=== PATIENT | female | born 1990 | race African-American/Black ===

== ENCOUNTER 2025-01-28 01:07 | Emergency (ER) | payer MEDICAID, OTHER ==
[~2025-01-28] VITALS: Ht 170.2 cm; Wt 107.0 kg
[2025-01-28 01:18] VITALS: O2SAT 99
[2025-01-28 01:58] LABS: BASOPHILS % 0.3 % (0.0-2.0); EOSINOPHILS % 2.2 % (0.0-5.0); HEMATOCRIT. 38.5 % (36.0-48.0); HEMOGLOBIN. 13.3 g/dL (12.0-16.0); LYMPHOCYTES % 33.6 % (20.0-50.0); MEAN PLATELET VOLUME 7.2 fl (7.4-10.4); MONOCYTES % 5.1 % (2.0-8.0); NEUTROPHILS % 58.8 % (40.0-76.0); PLATELET 401 x1000/uL (130-400); RED BLOOD CELL COUNT 4.85 mill/uL (4.2-5.4); RED CELL DISTRIBUTION WIDTH 14.3 % (11.6-14.6)
[2025-01-28 02:07] LABS: CREATININE 0.7 mg/dL (0.6-1.0); UREA NITROGEN BLOOD < 5 mg/dL (9-23)
[2025-01-28 02:09] LABS: TROPONIN I HIGH SENSITIVITY < 4 ng/L (3.0-34)
[2025-01-28] MEDS ORDERED: DICL100G58 TP (03:27)
[2025-01-28] MEDS: KETOROLAC 30MG/ML VIAL IM ONE (03:27)
[2025-01-28] MEDS ORDERED: IBUP-2030 MT (03:27)
[2025-01-28 03:39] VITALS: BP 142/106; PULSE 71; RESP 16; TEMP 36.7; O2SAT 99
== END 2025-01-28 03:40 | disposition home or self-care (01) ==
LOC: ER 01:07
DX: M94.0 Chondrocostal junction syndrome [Tietze] (principal); D72.829 Elevated white blood cell count, unspecified; I44.0 Atrioventricular block, first degree; J45.909 Unspecified asthma, uncomplicated
CPT/HCPCS: 99285; 71045; 80048; 81025; 85025; 84484; 36415; 93005; 96372; J1885